=== PATIENT | male | born 1965 | race Caucasian/White ===

== ENCOUNTER 2023-01-29 08:33 | Emergency (ER) | payer OTHER, SELFPAY ==
--- NOTE | ~2023-01-29 | XR_ITS ---
EXAMINATION: XR LUMBAR SPINE XR SACROILIAC JOINT CLINICAL INFORMATION: Pain. COMPARISON: MRI lumbar spine dated 12/29/2008. TECHNIQUE: Three views of the lumbosacral spine. Three views of the SI joints. FINDINGS: No acute fracture or malalignment. Large asymmetric osteophytes are present in the upper lumbar spine at L1-L2 and L2-L3. Multilevel degenerative disc disease is characterized by loss of intervertebral disc height with additional endplate osteophytes, apparent at most levels in the lumbar spine. There is more pronounced facet arthropathy in the lower lumbar spine. Baastrup's disease is evident at L4-L5. Paraspinal soft tissues are unremarkable aside from calcific atherosclerosis in the abdominal aorta. Minimal osteoarthritis is evident in the SI joints, characterized primarily by marginal osteophytes and subarticular sclerosis at the inferior aspects of both joints. No appreciable findings of sacroiliitis. XR/XR sacroiliac joint min 3V IMPRESSION: 1. Multilevel degenerative disc disease in the lumbar spine with more pronounced facet arthropathy in the lower lumbar spine. No acute osseous findings. 2. Minimal osteoarthritis in the SI joints.
--- NOTE | ~2023-01-29 | XR_ITS ---
EXAMINATION: XR LUMBAR SPINE XR SACROILIAC JOINT CLINICAL INFORMATION: Pain. COMPARISON: MRI lumbar spine dated 12/29/2008. TECHNIQUE: Three views of the lumbosacral spine. Three views of the SI joints. FINDINGS: No acute fracture or malalignment. Large asymmetric osteophytes are present in the upper lumbar spine at L1-L2 and L2-L3. Multilevel degenerative disc disease is characterized by loss of intervertebral disc height with additional endplate osteophytes, apparent at most levels in the lumbar spine. There is more pronounced facet arthropathy in the lower lumbar spine. Baastrup's disease is evident at L4-L5. Paraspinal soft tissues are unremarkable aside from calcific atherosclerosis in the abdominal aorta. Minimal osteoarthritis is evident in the SI joints, characterized primarily by marginal osteophytes and subarticular sclerosis at the inferior aspects of both joints. No appreciable findings of sacroiliitis. XR/XR lumbar spine 2-3V IMPRESSION: 1. Multilevel degenerative disc disease in the lumbar spine with more pronounced facet arthropathy in the lower lumbar spine. No acute osseous findings. 2. Minimal osteoarthritis in the SI joints.
[2023-01-29 08:38] VITALS: BP 175/104; PULSE 78; RESP 16; TEMP 37; O2SAT 97; BMI 31.2
--- NOTE | 2023-01-29 09:59 | ED_ITS ---
HPI - Back Pain/Injury General Chief Complaint: Back Pain/Injury Stated Complaint: back pain Time Seen by Provider: 01/29/23 08:54 Source: patient and RN notes reviewed Mode of arrival: ambulatory Limitations: no limitations History of Present Illness HPI Narrative: This is a 57-year-old male with a history of chronic back pain and hypertension, presenting to the emergency department for evaluation of acute on chronic back pain. Patient reports that on Sunday he was careful shuttling arrival when he felt something pinch. He states that he has had worsening pain in symptoms since. He also reports that the pain radiates down his left leg into the bottom of his left foot. Patient has a history of chronic back pain, and has been told that he has spinal stenosis. He states that he has a follow-up with [facility] on and is also referred to Neurology in March for further management of his symptoms. He has been taking ibuprofen, last dose was last night which has provided him with some relief. He denies any saddle anesthesia. Denies urinary bowel incontinence or retention. No hematuria or dysuria. No other complaints or concerns at this time. MD elicited complaint: back pain and back injury Pertinent past history: prior back pain Onset (ago): day(s) Timing: constant and progressively worsening Severity: moderate Similar Symptoms Previously: Yes Quality: aching Location: lumbar spine, right lower back and left lower back Radiation: left upper leg and left leg below the knee Exacerbating factors: movement, supine positioning and walking Relieving factors: immobilization Associated symptoms: denies other symptoms Treatments prior to arrival: NSAIDS Work related injury: No Related Data Previous Rx's Medication Instructions Recorded acetaminophen 325 mg capsule 650 mg PO Q6H PRN pain #45 caps 01/29/23 (Tylenol) cyclobenzaprine 10 mg tablet 10 mg PO TID PRN muscle spasm #15 01/29/23 tabs lidocaine 5 % topical patch 1 patch topical DAILY #30 ea 01/29/23 (Lidoderm) prednisone 50 mg tablet 50 mg PO DAILY 5 days #5 tabs 01/29/23 Allergies Allergy/AdvReac Type Severity Reaction Status Date / Time No Known Allergies Allergy Verified 01/29/23 08:42 Review of Systems Review of Systems: Yes all other systems are reviewed and are negative Constitutional: Constitutional: Reports as per [facility] Social History Social History Advance Directives: No Advance Directives Information Provided: Yes Physical Exam Vital Signs: Vital Signs: Last Vital Signs Temp 98.6 F 01/29/23 08:38 Pulse 62 01/29/23 10:46 Resp 16 01/29/23 10:46 BP 154/98 H 01/29/23 10:46 Pulse Ox 100 01/29/23 10:46 O2 Del Method Room Air 01/29/23 10:46 BMI result Body Mass Index 31.2 Const: General: cooperative, comfortable and no acute distress Orientation/consciousness: patient oriented x3 Limitations: no limitations HEENT: Head: Yes normal to inspection, Yes normocephalic and Yes atraumatic Ears: hearing grossly normal bilaterally General nose exam: Normal external nose present Face and sinus: Yes normal facial exam Mouth: Normal oral and palatal mucosa present, oropharynx normal and moist mucous membranes Throat: Yes posterior oropharynx normal Eyes: General: appearance normal, both eyes and all related structures Eyelids: Yes eyelids normal Conjunctivae: conjunctivae normal Sclerae: sclerae normal Pupils: Equal, round and reactive pupils present EOM: EOMs intact bilaterally Neck: Neck: Yes normal visual inspection, Yes full ROM and Yes no lymphadenopathy Lymphatic: no lymphadenopathy noted Chest: Chest palpation & inspection: normal inspection of the chest Resp: Effort & Inspection: normal respiratory effort and able to speak in complete sentences Auscultation: clear to auscultation bilaterally, no crackles, no rales, no rhonchi and no wheezes Cardio: Rate: regular rate Rhythm: regular rhythm Heart sounds: S1 normal heart sound present and S2 normal heart sound present GI: Inspection: Yes normal to inspection Back/Spine/Pelvis: Other: Tenderness to palpation along the left SI joint. No tenderness to palpation taj ng the midline spine or sacrum coccyx region. No overlying skin changes noted to the spine. Patellar reflexes are 2+. Difficulty raising left leg off of bed secondary to weakness and pain. Skin: General skin exam: no rashes or lesions noted Trauma: no lacerations or abrasions Wounds: no wounds Neuro: General: patient oriented x3 and moves all extremities Cranial nerves: Yes Equal, round and reactive pupils present Extrem: General: Yes normal to inspection Right upper extremity: normal to inspection Left upper extremity: normal to inspection Right lower extremity: normal to inspection Left lower extremity: normal to inspection Course Reevaluation(s) Reevaluation #1: Your x-ray show multilevel degenerative disc disease in the lumbar spine with more pronounced facet arthropathy in the lower lumbar spine. Also shows Baastrup's disease. 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 Discussed these results with patient. D/c on prednisone, muscle relaxants, lidoderm, and tylenol. Patient has follow-up appointment [facility] , given return precautions if any new or worsening symptoms occur. Patient understands and agrees with plan. Patient stable for discharge. Time: 11:24 Medical Decision Making Differential Diagnosis Differential Diagnoses: The differential diagnosis associated with the presentation includes Admission/Observation Consideration of admission/observation: Escalation of care including admission/observation considered Lab Data MDM Lab Attestation statement: I reviewed the patient's lab results. Radiology Impression Discussion of test interpretation with radiology: I have reviewed the radiologist's reading. 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 I have given you a copy of your x-rays for you to follow-up with [facility] as scheduled on . You also have mild osteoarthritis in your SI joints. Please take prescribed medication as directed. Do not drink alcohol or drive taking muscle relaxants as they can cause drowsiness. If any new or worsening symptoms occur including but not limited to numbness and tingling anterior groin, urinary or bowel incontinence retention please return for re-evaluation. Prescriptions: New prednisone 50 mg tablet 50 mg PO DAILY 5 Days Qty: 5 0RF cyclobenzaprine 10 mg tablet 10 mg PO TID PRN (Reason: muscle spasm) Qty: 15 0RF lidocaine [Lidoderm] 5 % adhesive patch,medicated 1 patch topical DAILY Qty: 30 0RF Rx Instructions: leave on most painful area for up to 12 hrs acetaminophen [Tylenol] 325 mg capsule 650 mg PO Q6H PRN (Reason: pain) Qty: 45 0RF
[2023-01-29 10:46] VITALS: BP 154/98; PULSE 62; RESP 16; O2SAT 100
== END 2023-01-29 11:32 | disposition home or self-care (01) ==
PROVIDERS: Emergency Provider Emergency Medicine; PCP Family Medicine
DX: M51.36 Other intervertebral disc degeneration, lumbar region (principal); M53.3 Sacrococcygeal disorders, not elsewhere classified
CPT/HCPCS: 72100; 72202; 99282; 99283

== ENCOUNTER 2023-01-30 16:54 | Emergency (ER) | payer OTHER, SELFPAY ==
--- NOTE | 2023-01-30 17:03 | ED.GENADULT ---
HPI - General Adult General Chief complaint: Back Pain/Injury Stated complaint: Back pain/Here yesterday meds not working Time Seen by Provider: 01/30/23 18:42 Source: patient Mode of arrival: ambulatory Limitations: no limitations History of Present Illness HPI narrative: pale chronic back pain diagnosed as lumbar canal stenosis plan to see vocational placement specialist coming week was seen here yesterday given Lidoderm patch and muscle relaxant comes here as medication not giving any relief in pain no bladder or bowel incontinence no loss of sensations patient feels heavy in the left leg Related Data Previous Rx's Medication Instructions Recorded acetaminophen 325 mg capsule 650 mg PO Q6H PRN pain #45 caps 01/29/23 (Tylenol) cyclobenzaprine 10 mg tablet 10 mg PO TID PRN muscle spasm #15 01/29/23 tabs lidocaine 5 % topical patch 1 patch topical DAILY #30 ea 01/29/23 (Lidoderm) prednisone 50 mg tablet 50 mg PO DAILY 5 days #5 tabs 01/29/23 morphine 15 mg immediate release 15 mg PO Q8H PRN pain #30 tabs 01/30/23 tablet Allergies Allergy/AdvReac Type Severity Reaction Status Date / Time No Known Allergies Allergy Verified 01/30/23 17:05 Review of Systems Review of Systems: Yes all other systems are reviewed and are negative [facility] Social History Social History Alcohol intake: current Alcohol intake frequency: a few times a month Smoked in Last 30 Days: No Use of substances other than those prescribed or required for medical reasons: No Advance Directives: No Advance Directives Information Provided: Yes Physical Exam ED Vital Signs: Vital Signs - 24 hr 01/30/23 17:05 Temperature 98.0 F Pulse Rate 90 Respiratory Rate 18 Blood Pressure 129/87 Pulse Oximetry 97 Oxygen Delivery Method Room Air BMI result Body Mass Index 32.3 Appearance: Alert. Oriented X3. No acute distress. Eyes: PERRLA, No Nystagmus ENT: Pharynx normal. Oral Mucosa moist Neck: Normal inspection. Neck supple. CVS: Normal heart rate and rhythm. Pulses normal. Respiratory: No respiratory distress. Equal air entry bilateral, Abdomen: Soft and nontender. Bowel sounds are present, no mass palpable, no CVA tenderness back: history lumbar spinal tenderness and left paraspinal tenderness SLR positive left side 60 degree neurovascular intact Skin: Skin warm and dry. Normal skin color. Normal skin turgor. Extremities: No lower extremity edema. No calf tenderness Neuro: Oriented X 3. No motor deficit. No sensory deficit.No cerebellar signs , cranial nerves II-XII intact Course Course Course Narrative: This is an RME: Additional HPI, ROS, PE not included below will be deferred to primary provider. 57 year old male presenting with back pain that has not changed since he was seen yesterday. He rates it a 6/10 but it changes with movement. Patient states no improvement with medication. He states that the pain has been moving around. Denies changes in bladder/bowel habits. [facility] follow [facility] with [facility] on but wants to be evaluated sooner. Plan: [facility] Medications Administered Discontinued Medications Generic Name Dose Route Start Last Admin Trade Name Freq PRN Reason Stop Dose Admin Oxycodone HCl 10 mg 01/30/23 19:17 01/30/23 19:26 Oxycodone Hcl Immed Release 5 Mg Tablet PO 01/30/23 19:18 10 mg ONCE ONE Administration Medical Decision Making Medical Decision Making [facility] Narrative: patient clinically with lumbar canal stenosis symptoms will discharge patient home on morphine tablets advised to follow up with vocational placement specialist as scheduled Discharge Plan Discharge Clinical Impression: Lumbar canal stenosis Patient Disposition: Home, Self-Care Instructions: Lumbar Spinal Stenosis (ED) Additional Instructions: continue muscle relaxants and take pain medication as prescribed follow-up with your spinal specialist as scheduled Prescriptions: New morphine 15 mg tablet 15 mg PO Q8H PRN (Reason: pain) Qty: 30 0RF Rx Instructions: Partial Fill upon patient request. No Action prednisone 50 mg tablet 50 mg PO DAILY 5 Days Qty: 5 0RF cyclobenzaprine 10 mg tablet 10 mg PO TID PRN (Reason: muscle spasm) Qty: 15 0RF lidocaine [Lidoderm] 5 % adhesive patch,medicated 1 patch topical DAILY Qty: 30 0RF Rx Instructions: leave on most painful area for up to 12 hrs acetaminophen [Tylenol] 325 mg capsule 650 mg PO Q6H PRN (Reason: pain) Qty: 45 0RF Interventions: ED Discharge Assessment Last Done: 01/30/23 19:31 Discharge Date/Time: 01/30/23 19:32
[2023-01-30 17:05] VITALS: BP 129/87; PULSE 90; RESP 18; TEMP 36.7; O2SAT 97; BMI 32.3
[2023-01-30] MEDS: oxyCODONE HCl Immed Release 5 MG TABLET 10 MG PO (19:26)
== END 2023-01-30 19:32 | disposition home or self-care (01) ==
PROVIDERS: Emergency Provider Internal Medicine; PCP Family Medicine
DX: M54.50 Low back pain, unspecified (principal)
CPT/HCPCS: 99283; 99284

== ENCOUNTER 2023-03-22 17:00 | Outpatient (RCR) | payer OTHER, SELFPAY | END 2023-05-02 13:37 | disposition home or self-care (01) | LOC: HO.PT 17:00 | PROVIDERS: PCP Family Medicine; Visit Provider Family Medicine | DX: M25.511 Pain in right shoulder (principal) | CPT/HCPCS: 97110; 97112; 97140; 97162; 97530 ==